=== PATIENT | female | born 1990 | race Asian ===

== ENCOUNTER 2017-07-03 23:14 | Emergency (ER) | payer SELFPAY ==
[2017-07-03] MEDS ORDERED: Acetaminophen TAB* 325 MG PO ONE (23:20)
[2017-07-04 04:39] VITALS: BP 107/74
--- NOTE | 2017-07-04 07:56 | RAD ---
HISTORY: Trauma, headache COMPARISONS: None TECHNIQUE: Multiple contiguous axial CT scans were obtained of the head without intravenous contrast. FINDINGS: HEMORRHAGE/INFARCT: There is no hemorrhage or acute infarct. MASSES/SHIFT: There is no mass or shift. EXTRA-AXIAL SPACES: There are no extra-axial fluid collections. SULCI AND VENTRICLES: The sulci and ventricles are normal in size and position for the patient's stated age. CEREBRUM: There are no focal parenchymal abnormalities. BRAINSTEM: There are no focal parenchymal abnormalities. CEREBELLUM: There are no focal parenchymal abnormalities. VESSELS: The vessels are grossly normal. PARANASAL SINUSES: The paranasal sinuses are clear. ORBITS: The orbits are unremarkable. BONES AND SOFT TISSUE: No bone or soft tissue abnormalities are noted. OTHER: None IMPRESSION: NO ACUTE INTRACRANIAL PATHOLOGY.
--- NOTE | 2017-07-04 07:58 | RAD ---
HISTORY: Trauma, neck pain COMPARISONS: None TECHNIQUE: Multiple contiguous axial CT scans were obtained of the cervical spine without intravenous contrast, with coronal and sagittal multiplanar reformations. FINDINGS: Evaluation is limited by streak artifact from metallic jewelry of the ears BRAIN: The visualized brain is unremarkable CENTRAL CANAL: Evaluation of the central canal is limited on CT technique, however there is no obvious canalicular mass or epidural hemorrhage. ALIGNMENT: The alignment is normal, without subluxation or dislocation. VERTEBRAL BODIES: The odontoid process is intact. The atlantoaxial intervals are symmetric. The vertebral bodies are normal in attenuation, without fracture. JOINTS: There is no subluxation or dislocation MUSCULATURE: Normal INTERVERTEBRAL DISCS: There is mild diffuse loss of intervertebral disc height. AXIAL IMAGES: On axial images, there is no osseous neural foraminal narrowing or central canal stenosis. SOFT TISSUES: The visualized soft tissues of the neck are unremarkable. The prevertebral fat stripe is preserved. OTHER: None. IMPRESSION: NO ACUTE OSSEOUS INJURY TO THE CERVICAL SPINE.
--- NOTE | 2017-07-04 07:59 | RAD ---
HISTORY: Fall, upper back pain COMPARISONS: None TECHNIQUE: Multiple contiguous axial CT scans were obtained of the thoracic spine without intravenous contrast, with coronal and sagittal multiplanar reformations. FINDINGS: SPINAL CANAL: Evaluation of the central canal is limited on CT technique; however, there is no obvious canalicular mass or epidural hemorrhage. ALIGNMENT: There is a mild scoliotic curvature of the spine VERTEBRAL BODIES: The vertebral bodies are preserved in height. The bones are normal in attenuation. JOINTS: No subluxation or dislocation MUSCULATURE: Normal INTERVERTEBRAL DISCS: There is mild diffuse loss of intervertebral disc height throughout the spine. AXIAL IMAGES: There is no osseous central canal stenosis or neuroforaminal narrowing. SOFT TISSUES: The visualized soft tissues of the chest and abdomen are unremarkable. OTHER: None IMPRESSION: NO ACUTE OSSEOUS INJURY TO THE THORACIC SPINE
--- NOTE | 2017-07-04 08:01 | RAD ---
HISTORY: Fall, left shoulder pain COMPARISONS: None VIEWS: 4, Frontal internal rotation, external rotation, outlet, and axillary views of the left shoulder FINDINGS: BONE DENSITY: Normal. BONES: There is no displaced fracture. JOINTS: There is no arthropathy. ALIGNMENT: There is no dislocation. SOFT TISSUES: Unremarkable. OTHER FINDINGS: None. IMPRESSION: NO ACUTE OSSEOUS INJURY. IF SYMPTOMS PERSIST, RECOMMEND REPEAT IMAGING.
--- NOTE | 2017-07-04 08:05 | RAD ---
HISTORY: Pain, fall, left-sided pain COMPARISONS: None VIEWS: 7, Frontal view of the chest with frontal and oblique views of the left hemithorax FINDINGS: There is no displaced rib fracture or pneumothorax. The visualized lungs are clear. IMPRESSION: NO DISPLACED RIB FRACTURE OR PNEUMOTHORAX.
--- NOTE | 2017-07-04 08:07 | RAD ---
HISTORY: Facial trauma, malocclusion COMPARISONS: None TECHNIQUE: Multiple contiguous axial CT scans were obtained of the face without intravenous contrast, with coronal and sagittal multiplanar reformations. FINDINGS: BONES: There is no displaced fracture or dislocation. The orbital rim is intact. The zygomatic arch is intact. The pterygoid plates are intact. ORBITS: The globes are round. The optic nerves are symmetric. The extraocular musculature is normal. There is no post septal or intraconal inflammatory change. There is no retrobulbar hematoma. PARANASAL SINUSES: There is a small mucous retention cyst of the left maxillary sinus BRAIN AND SOFT TISSUE: Unremarkable. OTHER: None. IMPRESSION: NO FACIAL FRACTURE
--- NOTE | 2017-07-04 10:37 | ED ---
Divina Moy Thomas, scribed for Lulú Sosa MD on 07/04/17 at 0311 . Progress - Progress Note Progress Note: The patient is a sign out from Dr. Washington at shift change pending XR shoulder. She says that she fell while walking down stairs and her head struck an object on the way down. At the time of re-evaluation 0220, she says that she is having trouble opening her jaw and that her teeth do not line up. She also complains of left rib pain. He male SO/spouse is with her. They are in agreement with further imaging. Pt still declines pain med more than acetaminophen. Pt was given results of XR shoulder as neg, as a preliminary reading by myself, Dr. Sosa. Exam: No TMJ tenderness, no swelling of hematoma of jaw. Pt able to open her mouth 2 fingers. Lower teeth are behind upper teeth but can be brought forward. Right ribs without ecchymosis, crepitus or bony tenderness. Max tenderness right lower lateral ribs. Abd soft,+BS, nontender. No splenomegaly or LUQ tenderness. Lungs good BS bilat, clear. In the ED course the patient was given acetaminophen. XR shoulder reveals no fracture and no dislocation. CXR with Ribs shows no definite fracture, no PTX, negative CXR. CT Maxillofacial is negative for acute pathology. ED physician has read this report and agrees. The patient will be discharged home with follow up by PCP. She is stable. Re-Evaluation - Re-Evaluation First Eval Re-Evaluation Time: 03:27 Change: Unchanged Comment: I re-evaluated the patient and informed pt and SO/spouse of the newest xray results showing no fractures. Pt is moving her jaw better and feels better. Course/Dx - Course Course Of Treatment: Condition: stable. Disposition: pt DC'd to home with male SO/spouse - Diagnoses Provider Diagnoses: Head injury, Concussion, Multiple contusions The documentation as recorded by the Divina byrne Thomas accurately reflects the service I personally performed and the decisions made by me, Lulú Sosa MD.
--- NOTE | 2017-07-09 13:11 | ED ---
Desi Moy Nilda, scribed for Chemo Washington MD on 07/04/17 at 0102 . Adult Trauma - HPI Summary HPI Summary: Patient is a 27 y.o. F BIBA presenting to [facility] s/p falling down stairs a few hours ago. Per EMS, patient was ambulatory after fall and walked to stretcher. Pain rated 9/10 in severity. Patient reports headache (diffuse burning), back pain (below neck), and shoulder pain. She denies LOC, dizziness, lightheadedness , and dyspnea. Patient denies drug abuse. - History of Current Complaint Chief Complaint: EDHeadInjury Stated Complaint: FALL/HEAD INJURY Time Seen by Provider: 07/03/17 23:21 Hx Obtained From: Patient, EMS Mechanism of Injury: Fall Ambulatory at the Scene: Yes Loss of Consciousness: no loss of consciousness Current Severity: Severe Pain Intensity: 9 Pain Scale Used: 0-10 Numeric Location: Head, Back, Other - shoulder Character: Burning Associated Signs & Symptoms: Positive: Other: - reports headache (diffuse burning), back pain (below neck), and shoulder pain. She denies LOC, dizziness, lightheadedness, and dyspnea. - Allergy/Home Medications Allergies/Adverse Reactions: Allergies Allergy/AdvReac Type Severity Reaction Status Date / Time Clarithromycin [From Biaxin] Allergy Unknown Verified 07/03/17 23:43 Reaction Details Codeine Allergy Unknown Verified 07/03/17 23:43 Reaction Details Morphine and Related Allergy Unknown Verified 07/03/17 23:43 Reaction Details Penicillins [PCN] Allergy Unknown Verified 07/03/17 23:43 Reaction Details PMH/Surg Hx/FS Hx/Imm Hx Opthamlomology History: Denies: Hx Legally Blind EENT History: Denies: Hx Deafness Infectious Disease History: No Infectious Disease History: Denies: Traveled Outside the [place] in Last 30 Days - Family History Known Family History: Negative: Hypertension, Diabetes Review of Systems Negative: Fever, Chills Negative: Erythema Negative: Sore Throat Negative: Chest Pain Negative: Shortness Of Breath, Cough Negative: Abdominal Pain, Vomiting, Nausea Negative: dysuria, hematuria Positive: Other - back pain (below neck) and shoulder pain. Negative: Myalgia , Edema Negative: Rash Neurological: Other - fall; negative LOC, dizziness, lightheadedness Positive: Headache All Other Systems Reviewed And Are Negative: Yes Physical Exam - Summary Physical Exam Summary: Constitutional: Well-developed, Well-nourished, Alert, Cooperative Skin: Warm, Dry HENT: Normocephalic; No Racoons eyes; No battles sign; No hemotympanum; No maxilla facial tenderness or instability; Dentition are smooth; No dental trauma ; No trismus; Small hematoma on occipital scalp. Eyes: EOM normal, PERRL Neck: Trachea is midline. No stridor; No JVD; No step off; No posterior cervical spine tenderness Cardio: Rhythm regular, rate normal Heart sounds normal; Intact distal pulses; The pedal pulses are 2+ and symmetric. Radial pulses are 2+ and symmetric. Pulmonary/Chest wall: Effort normal; Breath sounds normal; Equal chest rise; No flail segment; No rib tenderness; No sternal tenderness Abd: Soft, Appearance normal. No distension; No tenderness; No palpable pulsatile mass; No Cullens sign; No Correa-Turners sign Musculoskeletal: Tenderness over left mid clavicle (no pain with ROM); No joint swelling; No vertebral body tenderness; No paraspinal tenderness; No step off or deformity of the spine; Pelvis is stable to lateral compression and rock Neuro: Alert, Oriented x3, Strength 5/5 all extremities. : No blood at urethral meatus Psych: Mood and affect Normal Triage Information Reviewed: Yes Vital Signs On Initial Exam: Initial Vitals Temp Pulse Resp BP Pulse Ox 98.1 F 107 25 106/87 100 07/03/17 23:15 07/03/17 23:15 07/03/17 23:15 07/03/17 23:15 07/03/17 23:15 Vital Signs Reviewed: Yes Diagnostics - Vital Signs Vital Signs Temp Pulse Resp BP Pulse Ox 07/03/17 23:15 98.1 F 107 25 106/87 100 - Laboratory Lab Statement: Any lab studies that have been ordered have been reviewed, and results considered in the medical decision making process. - CT Head CT Interpretation Completed By: Radiologist - CT Head reveals no acute pathology per radiologist. ED Physician reviewed report and agrees. CT C-spine CT Interpretation Completed By: Radiologist CT T-spine CT Interpretation Completed By: Radiologist - CT T-spine reveals no fracture. ED Physician reviewed report and agrees. Re-Evaluation - Re-Evaluation First Eval Re-Evaluation Time: 03:27 Change: Unchanged Comment: I re-evaluated the patient and informed pt and SO/spouse of the newest xray results showing no fractures. Pt is moving her jaw better and feels better. Adult Trauma Course/Dx - Course Assessment/Plan: Patient is a 27 y.o. F BIBA presenting to [facility] s/p falling down stairs a few hours ago. Per EMS, patient was ambulatory after fall and walked to stretcher. Pain rated 9/10 in severity. Patient reports headache ( diffuse burning), back pain (below neck), and shoulder pain. She denies LOC, dizziness, lightheadedness, and dyspnea. Patient denies drug abuse. CT Head reveals no acute pathology per radiologist. ED Physician reviewed report and agrees. CT C- spine reveals no fracture. ED Physician reviewed report and agrees. CT T-spine reveals no fracture. ED Physician reviewed report and agrees. Patient was signed out to Dr. Sosa, pending disposition, awaiting shoulder XRAY. - Diagnoses Provider Diagnoses: Head injury, Concussion, Multiple contusions Discharge - Discharge Plan Condition: Stable Disposition: HOME Discharge Disposition Comment: Patient was signed out to Dr. Sosa, pending shoulder XRAY. Patient Education Materials: Concussion (ED), Contusion in Adults (ED), Safe Use of Acetaminophen (ED) Referrals: Jocy Mccall MD [Medical Doctor] - 2 Days (for concussion follow) Arabella Hu MD [Medical Doctor] - As Soon As Possible Additional Instructions: You were given acetaminophen (Tylenol) 650mg at 11:45pm on 07/03/17. You may safely take up to four grams of acetaminophen in 24 hrs. So maximum dose would be 1 gm four times a day for pain. Have follow up for concussion this week. Return to the ER if you have any new or worsening symptoms. Please be advised that the readings on your CT's and xrays are preliminary. We will contact you if there is any change in the readings. Your doctors tonight were Dr. Washington and Dr. Sosa. Dr. Sosa recommends that Dr. Hu should try to see you sooner in follow up , preferably this week to follow up on your multiple injuries and contusions tonight. The documentation as recorded by the scribe, Weeks,Darcy accurately reflects the service I personally performed and the decisions made by me, Chemo Washington MD.
== END 2017-07-04 04:47 | disposition home or self-care (01) ==
LOC: ED 23:14
DX: S06.0X0A Concussion without loss of consciousness, initial encounter (principal); S09.90XA Unspecified injury of head, initial encounter; T14.8 Other injury of unspecified body region; R51 Headache; W10.9XXA Fall (on) (from) unspecified stairs and steps, initial encounter; Y93.9 Activity, unspecified; Y92.9 Unspecified place or not applicable
CPT/HCPCS: 70450; 70486; 72125; 72128; 99283; A9270-GY

== ENCOUNTER 2018-06-07 14:34 | Emergency (ER) | payer OTHER ==
[2018-06-07] MEDS ORDERED: Ondansetron ODT TAB* 4 MG SL ONE (16:33)
[2018-06-07] MEDS ORDERED: NS 0.9% 1000 ML* 1,000 ML IV ONE (16:33)
[2018-06-07 16:57] LABS: ABS Basophils 0 10^3/ul (0-0.2); ABS Eosinophils 0 10^3/ul (0-0.6); ABS Monocytes 0.5 10^3/ul (0-0.8); ABS Neutrophils 1.8 10^3/ul (1.5-7.7); ABS Nucleated RBC 0 10^3/ul; Eosinophil % 0.7 % (0-6); Hematocrit 40 % (35-47); Hemoglobin 13.6 g/dl (12.0-16.0); Lymphocyte % 29.4 % (25-47); Mean Corpuscular HGB Conc 34 g/dl (31-36); Mean Corpuscular Hemoglobin 29 pg (27-31); Mean Corpuscular Volume 86 fL (80-97); Mean Platelet Volume 9.3 um3 (7.4-10.4); Nucleated Red Blood Cells % 0.1; Platelet Count 168 10^3/ul (150-450); Red Blood Count 4.66 10^6/ul (4.00-5.40); Red Cell Distribution Width 13 % (10.5-15); White Blood Count 3.3 10^3/ul (3.5-10.8)
[2018-06-07 17:20] LABS: EGFR Non-African American 142.6 (>60)
--- NOTE | 2018-06-07 17:23 | RAD ---
INDICATION: Chest pain and shortness of breath COMPARISON: None TECHNIQUE: PA and lateral views of the chest were obtained. FINDINGS: The heart and mediastinum are normal in size and contour. The lungs are grossly clear. There is no evidence of large pleural effusion. Visualized bones are normal for the patient's age. There is no radiographic evidence of free air beneath the diaphragm IMPRESSION: No radiographic evidence of acute cardiopulmonary disease.
[2018-06-07] MEDS ORDERED: Albuterol HFA INHALER* 8 gm MDI INH ONE (17:40)
[2018-06-07 18:02] VITALS: BP 114/74
--- NOTE | 2018-06-08 05:59 | ED ---
Influenza-Like Illness - HPI Summary HPI Summary: Patient is a 28-year-old female presenting to the ED with a variety of complaints. She endorses low-grade temperature over the past week, however this has ceased as of 2 days ago. She also endorses some sweats and chills. She endorses diffuse myalgias, however she states these are improving as well. Overall she states she feels better, however awoke this morning with some chest pressure which is diffuse as well as SOB. She states this is happened before when she was sick, and this was improved with albuterol inhaler given to her by her PCP. Temperature at home 100.5, she has been taking Tylenol with good relief. - History of Current Complaint Chief Complaint: EDChestPainROMI Time Seen by Provider: 06/07/18 16:23 Hx Obtained From: Patient Onset/Duration: Gradual Onset, Lasting Weeks Severity: Mild Associated Signs & Symptoms: Fever, T Max - 100.5, F/C, Myalgia - Risk Factors Influenza Risk Factors: Negative - Allergy/Home Medications Allergies/Adverse Reactions: Allergies Allergy/AdvReac Type Severity Reaction Status Date / Time MS Clarithromycin Allergy SEVERE Verified 06/07/18 17:19 [From Biaxin] VOMITING MS Codeine [Codeine] Allergy SEVERE Verified 06/07/18 17:19 VOMITING MS Morphine and Related Allergy SEVERE Verified 06/07/18 17:19 [Morphine and Related] VOMITING MS Penicillins [PCN] Allergy A CHILD Verified 06/07/18 17:19 DAIRY Allergy Diarrhea Uncoded 06/07/18 17:19 Home Medications: Home Medications NK [No Home Medications Reported] 06/07/18 [History Confirmed 06/07/18] PMH/Surg Hx/FS Hx/Imm Hx Previously Healthy: Yes Endocrine/Hematology History: Denies: Hx Diabetes Cardiovascular History: Denies: Hx Hypertension, Hx Pacemaker/ICD History: Denies: Hx Renal Disease Sensory History: Denies: Hx Legally Blind, Hx Deafness, Hx Hearing Aid Opthamlomology History: Denies: Hx Legally Blind Psychiatric History: Denies: Hx Panic Disorder - Surgical History Surgery Procedure, Year, and Place: TONSILS/ADENOIDS CHILD - Immunization History Immunizations Up to Date: Yes Infectious Disease History: No Infectious Disease History: Denies: Traveled Outside the [place] in Last 30 Days - Family History Known Family History: Negative: Hypertension, Diabetes - Social History Occupation: Employed Full-time Lives: With Family Alcohol Use: Rare Hx Substance Use: No Substance Use Type: Reports: None Hx Tobacco Use: No Smoking Status (MU): Never Smoked Tobacco Review of Systems Positive: Fever, Chills, Fatigue. Negative: Skin Diaphoresis Positive: Chest Pain. Negative: Palpitations Positive: Shortness Of Breath, Cough Genitourinary: Negative Positive: no symptoms reported, see HPI Positive: Myalgia Skin: Negative Neurological: Negative All Other Systems Reviewed And Are Negative: Yes Physical Exam Triage Information Reviewed: Yes Vital Signs On Initial Exam: Initial Vitals Temp Pulse Resp BP Pulse Ox 98.6 F 101 16 128/85 100 06/07/18 14:36 06/07/18 14:36 06/07/18 14:36 06/07/18 14:36 06/07/18 14:36 Vital Signs Reviewed: Yes Appearance: Positive: Well-Appearing, Well-Nourished Skin: Positive: Warm, Skin Color Reflects Adequate Perfusion Head/Face: Positive: Normal Head/Face Inspection Eyes: Positive: EOMI, JASVIR, Conjunctiva Clear Neck: Positive: Supple Respiratory/Lung Sounds: Positive: Clear to Auscultation, Breath Sounds Present Cardiovascular: Positive: RRR, Pulses are Symmetrical in both Upper and Lower Extremities Musculoskeletal: Positive: Normal, Strength/ROM Intact Neurological: Positive: Speech Normal Psychiatric: Positive: Normal, Affect/Mood Appropriate AVPU Assessment: Alert Diagnostics - Vital Signs Vital Signs Temp Pulse Resp BP Pulse Ox 06/07/18 18:11 99 F 69 16 114/74 100 06/07/18 17:35 77 17 114/74 99 06/07/18 17:17 82 18 117/84 93 06/07/18 16:48 17 113/77 06/07/18 14:36 98.6 F 101 16 128/85 100 - Laboratory Lab Results: Lab Results 06/07/18 06/07/18 06/07/18 Range/Units 16:52 16:52 16:52 WBC 3.3 L (3.5-10.8) 10^3/ul RBC 4.66 (4.00-5.40) 10^6/ul Hgb 13.6 (12.0-16.0) g/dl Hct 40 (35-47) % MCV 86 (80-97) fL MCH 29 (27-31) pg MCHC 34 (31-36) g/dl RDW 13 (10.5-15) % Plt Count 168 (150-450) 10^3/ul MPV 9.3 (7.4-10.4) um3 Neut % (Auto) 55.5 (38-83) % Lymph % (Auto) 29.4 (25-47) % [place] % (Auto) 14.1 H (0-7) % Eos % (Auto) 0.7 (0-6) % Baso % (Auto) 0.3 (0-2) % Absolute Neuts (auto) 1.8 (1.5-7.7) 10^3/ul Absolute Lymphs (auto) 1.0 (1.0-4.8) 10^3/ul Absolute Monos (auto) 0.5 (0-0.8) 10^3/ul Absolute Eos (auto) 0 (0-0.6) 10^3/ul Absolute Basos (auto) 0 (0-0.2) 10^3/ul Absolute Nucleated RBC 0 10^3/ul Nucleated RBC % 0.1 INR (Anticoag Therapy) 1.00 (0.77-1.02) D-Dimer, Quantitative < 200 (Less Than 230) ng/mL Sodium 139 (135-145) mmol/L Potassium 4.5 (3.5-5.0) mmol/L Chloride 107 (101-111) mmol/L Carbon Dioxide 25 (22-32) mmol/L Anion Gap 7 (2-11) mmol/L BUN 6 (6-24) mg/dL Creatinine 0.51 (0.51-0.95) mg/dL Est GFR ( Amer) 172.5 (>60) Est GFR (Non-Af Amer) 142.6 (>60) BUN/Creatinine Ratio 11.8 (8-20) Glucose 89 (70-100) mg/dL Lactic Acid (0.5-2.0) mmol/L Calcium 9.7 (8.6-10.3) mg/dL Total Bilirubin 0.30 (0.2-1.0) mg/dL AST 18 (13-39) U/L ALT 14 (7-52) U/L Alkaline Phosphatase 41 (34-104) U/L Troponin I 0.00 (<0.04) ng/mL Total Protein 7.1 (6.4-8.9) g/dL Albumin 4.8 (3.2-5.2) g/dL Globulin 2.3 (2-4) g/dL Albumin/Globulin Ratio 2.1 (1-3) Beta HCG, Quant < 0.60 mIU/mL Influenza A (Rapid) (Negative) Influenza B (Rapid) (Negative) 06/07/18 06/07/18 Range/Units 16:52 17:06 WBC (3.5-10.8) 10^3/ul RBC (4.00-5.40) 10^6/ul Hgb (12.0-16.0) g/dl Hct (35-47) % MCV (80-97) fL MCH (27-31) pg MCHC (31-36) g/dl RDW (10.5-15) % Plt Count (150-450) 10^3/ul MPV (7.4-10.4) um3 Neut % (Auto) (38-83) % Lymph % (Auto) (25-47) % [place] % (Auto) (0-7) % Eos % (Auto) (0-6) % Baso % (Auto) (0-2) % Absolute Neuts (auto) (1.5-7.7) 10^3/ul Absolute Lymphs (auto) (1.0-4.8) 10^3/ul Absolute Monos (auto) (0-0.8) 10^3/ul Absolute Eos (auto) (0-0.6) 10^3/ul Absolute Basos (auto) (0-0.2) 10^3/ul Absolute Nucleated RBC 10^3/ul Nucleated RBC % INR (Anticoag Therapy) (0.77-1.02) D-Dimer, Quantitative (Less Than 230) ng/mL Sodium (135-145) mmol/L Potassium (3.5-5.0) mmol/L Chloride (101-111) mmol/L Carbon Dioxide (22-32) mmol/L Anion Gap (2-11) mmol/L BUN (6-24) mg/dL Creatinine (0.51-0.95) mg/dL Est GFR ( Amer) (>60) Est GFR (Non-Af Amer) (>60) BUN/Creatinine Ratio (8-20) Glucose (70-100) mg/dL Lactic Acid 0.7 (0.5-2.0) mmol/L Calcium (8.6-10.3) mg/dL Total Bilirubin (0.2-1.0) mg/dL AST (13-39) U/L ALT (7-52) U/L Alkaline Phosphatase (34-104) U/L Troponin I (<0.04) ng/mL Total Protein (6.4-8.9) g/dL Albumin (3.2-5.2) g/dL Globulin (2-4) g/dL Albumin/Globulin Ratio (1-3) Beta HCG, Quant mIU/mL Influenza A (Rapid) Negative (Negative) Influenza B (Rapid) Negative (Negative) Result Diagrams: 06/07/18 16:52 06/07/18 16:52 Lab Statement: Any lab studies that have been ordered have been reviewed, and results considered in the medical decision making process. Flu Symptom Course/Dx - Course Course Of Treatment: During the course of treatment, the patient is evaluated for chest pain, shortness of breath and generalized illness. Chest pressure is described as a pressure diffusely throughout and does heavy. She endorses cough , however denies production. Endorses diffuse myalgias which are improving. Labs obtained including troponin which are WNL. Chest xray negative. Patient is given albuterol inhaler with good relief. Influenza swab obtained and is negative. She is given 1 L fluids with good effect. She is okay for discharge at this time. - Diagnoses Differential Diagnosis/HQI/PQRI: Positive: Influenza, Pneumonia, Upper Respiratory Infection Provider Diagnoses: Viral illness Discharge - Sign-Out/Discharge Documenting (check all that apply): Patient Departure - Discharge Plan Condition: Stable Disposition: HOME Referrals: Arabella Hu MD [Primary Care Provider] - Additional Instructions: Ibuprofen or tylenol for discomfort Albuterol inhaler up to every 4 hours - 1 puff Return if any symptoms change or worsen - Billing Disposition and Condition Condition: STABLE Disposition: Home
== END 2018-06-07 18:11 | disposition home or self-care (01) ==
LOC: ED 14:34
DX: B34.9 Viral infection, unspecified (principal); R07.89 Other chest pain; Z88.3 Allergy status to other anti-infective agents; Z88.0 Allergy status to penicillin; Z88.5 Allergy status to narcotic agent
CPT/HCPCS: 36415; 71046; 80053; 83605; 84484; 84702; 85025; 85379; 85610; 93005; 99282; A9270-GY

== ENCOUNTER 2018-10-16 00:19 | Emergency (ER) | payer OTHER ==
[2018-10-16] MEDS ORDERED: Ketorolac INJ* 30 MG/ML 1 ML VIAL IM ONE (00:45)
--- NOTE | 2018-10-16 01:47 | ED ---
Upper Extremity Pain - HPI Summary HPI Summary: Patient is a 28-year-old female presenting to the ED with left shoulder pain after throwing a harbor [employer] earlier this afternoon. She states she immediately felt discomfort all around the shoulder, to the posterior and anterior side and radiating down the tricep area. She denies any color or temperature changes. She states she is able to move about the joint, however with pain. She is concerned over a dislocation. She denies any numbness or tingling in the ipsilateral arm. She has never injured this shoulder in the past, however has had neck injuries and is currently in PT for right scalene muscle injuries. She is extremely concerned and anxious on arrival and is shaking. She is refusing any medications on arrival. - History of Current Complaint Chief Complaint: EDShoulderClavicleInj Stated Complaint: SHOULDER INJURY Time Seen by Provider: 10/16/18 00:37 Hx Obtained From: Patient Mechanism Of Injury: Twisted Onset/Duration: Started Hours Ago Timing: Constant Severity Initially: Moderate Severity Currently: Moderate Pain Location: Shoulder Character: Aching Aggravating Factor(s): Movement, Lifting, Flexion, Extension, Internal/External Rotation Alleviating Factor(s): Nothing Associated Signs & Symptoms: Positive: Negative Related History: Dominant Hand Right - Risk Factors Non-Orthopedic Risk Factor: Negative DVT Risk Factors: Negative Septic Arthritis Risk Factor: Negative Compartment Syndrome Risk Factors: Pain - Allergies/Home Medications Allergies/Adverse Reactions: Allergies Allergy/AdvReac Type Severity Reaction Status Date / Time MS Clarithromycin Allergy SEVERE Verified 10/16/18 00:23 [From Biaxin] VOMITING MS Codeine [Codeine] Allergy SEVERE Verified 10/16/18 00:23 VOMITING MS Morphine and Related Allergy SEVERE Verified 10/16/18 00:23 [Morphine and Related] VOMITING MS Penicillins [PCN] Allergy A CHILD Verified 10/16/18 00:23 DAIRY Allergy Diarrhea Uncoded 10/16/18 00:23 PMH/Surg Hx/FS Hx/Imm Hx Previously Healthy: Yes Endocrine/Hematology History: Denies: Hx Diabetes Cardiovascular History: Denies: Hx Hypertension, Hx Pacemaker/ICD History: Denies: Hx Renal Disease Sensory History: Denies: Hx Legally Blind, Hx Deafness, Hx Hearing Aid Opthamlomology History: Denies: Hx Legally Blind Psychiatric History: Denies: Hx Panic Disorder - Surgical History Surgery Procedure, Year, and Place: TONSILS/ADENOIDS CHILD - Immunization History Hx Pertussis Vaccination: No Immunizations Up to Date: Yes Infectious Disease History: No Infectious Disease History: Denies: Traveled Outside the [place] in Last 30 Days - Family History Known Family History: Negative: Hypertension, Diabetes - Social History Occupation: Unemployed Lives: With Family Alcohol Use: Rare Hx Substance Use: No Substance Use Type: Reports: None Hx Tobacco Use: No Smoking Status (MU): Never Smoked Tobacco Review of Systems Constitutional: Negative Negative: Fever, Chills, Fatigue, Skin Diaphoresis Negative: Palpitations, Chest Pain Negative: Shortness Of Breath, Cough Genitourinary: Negative Positive: no symptoms reported, see HPI Positive: Arthralgia, Myalgia Skin: Negative Neurological: Negative Positive: Anxious All Other Systems Reviewed And Are Negative: Yes Physical Exam Triage Information Reviewed: Yes Vital Signs On Initial Exam: Initial Vitals Temp Pulse Resp BP Pulse Ox 98.1 F 98 18 144/89 98 10/16/18 00:20 10/16/18 00:20 10/16/18 00:20 10/16/18 00:20 10/16/18 00:20 Vital Signs Reviewed: Yes Appearance: Positive: Well-Appearing, Well-Nourished Skin: Positive: Warm, Skin Color Reflects Adequate Perfusion Head/Face: Positive: Normal Head/Face Inspection Eyes: Positive: EOMI, JASVIR, Conjunctiva Clear Neck: Positive: Supple Respiratory/Lung Sounds: Positive: Clear to Auscultation, Breath Sounds Present Cardiovascular: Positive: RRR, Pulses are Symmetrical in both Upper and Lower Extremities Musculoskeletal: Positive: Pain @ - posterior and anterior shoulder throughout supraspinatus and trapezius radiating down to the elbow - worse with movement and better with rest Neurological: Positive: Speech Normal Psychiatric: Positive: Normal, Affect/Mood Appropriate Diagnostics - Vital Signs Vital Signs Temp Pulse Resp BP Pulse Ox 10/16/18 00:20 98.1 F 98 18 144/89 98 - Laboratory Lab Statement: Any lab studies that have been ordered have been reviewed, and results considered in the medical decision making process. Course/Dx - Course Course Of Treatment: During the course treatment, the patient is evaluated for left shoulder injury. Shoulder tests all WNL: Neer test, empty can test, Yergason's test. No sulcus sign evident. X-ray obtained and read by Dr. Sosa is negative for any fracture or dislocation. While patient continues to be in pain, she continues to refuse any pain control. She is willing to try a Toradol IM. She states she has medical marijuana at home and will continue to use that for discomfort. She is placed in a shoulder immobilizer and will follow up with ortho in 2-3 days. NV intact. - Diagnoses Differential Diagnosis/HQI/PQRI: Positive: Strain, Sprain Provider Diagnoses: Shoulder strain Discharge - Sign-Out/Discharge Documenting (check all that apply): Patient Departure - Discharge Plan Condition: Stable Disposition: HOME Patient Education Materials: Shoulder Sprain (ED) Referrals: Arabella Hu MD [Primary Care Provider] - Brandie Zhu MD [Medical Doctor] - Additional Instructions: Ibuprofen 600mg every 6 hours x 3 days Take this with small amount of food Try to relax as much as you can - this will relax the muscles Moist heat to the area as much as possible starting tomorrow and lie on top of moist heat pack while sleeping Tonight and in the morning - use ICE (except for just before bed) keep the arm in the splint as long as you are having symptoms Gentle stretches if they are not TOO painful Do not stiffen up or try to NOT use your arm or neck muscles - this will freeze up your shoulder more Call orthopedic clinic on Wednesday for an appt You may always return to the ED - Billing Disposition and Condition Condition: STABLE Disposition: Home
[2018-10-16 02:22] VITALS: BP 137/79
== END 2018-10-16 02:00 | disposition home or self-care (01) ==
LOC: ED 00:19
DX: S43.402A Unspecified sprain of left shoulder joint, initial encounter (principal); X50.9XXA Other and unspecified overexertion or strenuous movements or postures, initial encounter; Y92.9 Unspecified place or not applicable; Z88.0 Allergy status to penicillin; Z88.5 Allergy status to narcotic agent
CPT/HCPCS: 96372; 99282; J1885

== ENCOUNTER 2018-10-16 15:47 | Emergency (ER) | payer OTHER ==
--- NOTE | 2018-10-16 16:20 | ED ---
Upper Extremity Pain - HPI Summary HPI Summary: A 28 y/o female accompanied by a friend presents to the ED c/o left shoulder pain reaching 7/10 in severity. As per triage, "pt states feels like arm is pinched off, colder than the other and hurts more". According to the patient, she was here last night because of her shoulder pain from throwing a sheet. She stated that she is not sure what it is, but she was referred to an wardrobe specialist at [facility] ([place]. Zhu). She stated that since then, her left armpit has been in pain along with the shoulder. Additionally, her left arm has been changing color from red to purple and she experiences some numbness/tingling. She noted that the pain is in a different location from yesterday. She noted that what she is feeling is similar to the heaviness feeling during drawing blood. - History of Current Complaint Chief Complaint: EDShoulderClavicleInj Stated Complaint: SHOULDER INURY Time Seen by Provider: 10/16/18 16:00 Hx Obtained From: Patient Mechanism Of Injury: Other - THROWING BLANKETS Onset/Duration: Started Days Ago, Still Present Timing: Constant Severity Initially: Moderate - 7/10 Severity Currently: Moderate - 7/10 Pain Location: Shoulder - LEFT Character: Unable to Describe Aggravating Factor(s): Movement Alleviating Factor(s): Nothing Associated Signs & Symptoms: Positive: Numbness/Tingling - IN LEFT ARM - Allergies/Home Medications Allergies/Adverse Reactions: Allergies Allergy/AdvReac Type Severity Reaction Status Date / Time gluten Allergy Stomach Verified 10/16/18 15:53 Cramps lactase [From Dairy Aid] Allergy Muscle Ache Verified 10/16/18 15:53 morphine Allergy Vomiting Verified 10/16/18 15:53 Penicillins Allergy Vomiting Verified 10/16/18 15:53 biaxin Allergy Vomiting Uncoded 10/16/18 15:53 DAIRY Allergy Diarrhea Uncoded 10/16/18 15:53 PMH/Surg Hx/FS Hx/Imm Hx Endocrine/Hematology History: Denies: Hx Diabetes Cardiovascular History: Denies: Hx Hypertension, Hx Pacemaker/ICD History: Denies: Hx Renal Disease Sensory History: Denies: Hx Legally Blind, Hx Deafness, Hx Hearing Aid Opthamlomology History: Denies: Hx Legally Blind Psychiatric History: Denies: Hx Panic Disorder - Surgical History Surgery Procedure, Year, and Place: TONSILS/ADENOIDS CHILD Infectious Disease History: No Infectious Disease History: Denies: Traveled Outside the [place] in Last 30 Days - Family History Known Family History: Negative: Hypertension, Diabetes - Social History Alcohol Use: Rare Hx Substance Use: No Substance Use Type: Reports: None Hx Tobacco Use: No Smoking Status (MU): Never Smoked Tobacco Review of Systems Negative: Fever Positive: Other - POSITIVE: LEFT SHOULDER PAIN/ARMPIT PAIN Positive: Numbness - TINGLING All Other Systems Reviewed And Are Negative: Yes Physical Exam - Summary Physical Exam Summary: Appearance: The patient is well-nourished in no acute distress and in no acute pain. Skin: The skin is warm and dry and skin color reflects adequate perfusion. HEENT: The head is normocephalic and atraumatic. The pupils are equal and reactive. The conjunctivae are clear and without drainage. Nares are patent and without drainage. Mouth reveals moist mucous membranes and the throat is without erythema and exudate. The external ears are intact. The ear canals are patent and without drainage. The tympanic membranes are intact. Neck: The neck is supple with full range of motion and non-tender. There are no carotid bruits. There is no neck vein distension. Respiratory: Chest is non-tender. Lungs are clear to auscultation and breath sounds are symmetrical and equal. Cardiovascular: Heart is regular rate and rhythm. There is no murmur or rub auscultated. There is no peripheral edema and pulses are symmetrical and equal. Abdomen: The abdomen is soft and non-tender. There are normal bowel sounds heard in all four quadrants and there is no organomegaly palpated. Musculoskeletal: There is no back tenderness noted. Extremities are non-tender with full range of motion. There is good capillary refill. There is no peripheral edema or calf tenderness elicited. Left arm has good radial and ulnar pulse. NV and motor intact. Neurological: Patient is alert and oriented to person, place and time. The patient has symmetrical motor strength in all four extremities. Cranial nerves are grossly intact. Deep tendon reflexes are symmetrical and equal in all four extremities. Psychiatric: The patient has an appropriate affect and does not exhibit any depression. Patient is anxious. Triage Information Reviewed: Yes Vital Signs On Initial Exam: Initial Vitals Temp Pulse Resp BP Pulse Ox 98.9 F 88 16 147/79 97 10/16/18 15:49 10/16/18 15:49 10/16/18 15:49 10/16/18 15:49 10/16/18 15:49 Vital Signs Reviewed: Yes Diagnostics - Vital Signs Vital Signs Temp Pulse Resp BP Pulse Ox 10/16/18 15:49 98.9 F 88 16 147/79 97 - Laboratory Lab Statement: Any lab studies that have been ordered have been reviewed, and results considered in the medical decision making process. - CT UPPER EXTREMITY CT CT Interpretation Completed By: Radiologist Summary of CT Findings: HILL-SACHS FRACTURE. ED PHYSICIAN REVIEWED THIS RADIOLOGY REPORT. Course/Dx - Course Course Of Treatment: Ms. Cardenas return to the emergency department with a concern for her left shoulder injury. She was throwing some sheets yesterday and felt a great deal of pain and a pop in her left shoulder. She presented to the emergency department and was violated with an exam and an x-ray and placed in a shoulder immobilizer. Today she is complaining that she has paresthesias that are intermittent. These involve both temperature and tingling sensations. On exam she was completely intact neuro vascular and motor distally and had a lot of tenderness in her axilla. CT scan showed a Hill-Sachs fracture suggesting that she partially dislocated yesterday and spontaneously reduced. She has good sensation over the deltoid. She likely has inflammation in her axilla that is causing her symptomatology and I recommended we treat with continued immobilization and anti-inflammatories. - Diagnoses Provider Diagnoses: Hill-Sachs fracture, Shoulder dislocation Discharge - Sign-Out/Discharge Documenting (check all that apply): Patient Departure - DISCHARGE - Discharge Plan Condition: Stable Disposition: HOME Patient Education Materials: Shoulder Dislocation (ED) Referrals: Arabella Hu MD [Primary Care Provider] - 3 Days Gris Gao MD [Medical Doctor] - 3 Days Additional Instructions: FOLLOW UP WITH ORTHOPEDICS IN 2-3 DAYS. TAKE IBUPROFEN NEEDED FOR PAIN. KEEP YOUR ARM IN THE SHOULDER IMMOBILIZER UNTIL CLEARED BY ORTHOPEDICS. RETURN TO ED FOR ANY NEW OR WORSENING SYMPTOMS. - Billing Disposition and Condition Condition: STABLE Disposition: Home - Attestation Statements Document Initiated by Scribe: Yes Documenting Scribe: Hernando Ferreira Provider For Whom Scribe is Documenting (Include Credential): Ricardo Emanuel MD Scribe Attestation: IHernando, scribed for Ricardo Emanuel MD on 10/16/18 at 2117. Scribe Documentation Reviewed: Yes Provider Attestation: The documentation as recorded by the scribeHernando accurately reflects the service I personally performed and the decisions made by me, Ricardo Emanuel MD Status of Scribe Document: Viewed
[2018-10-16] MEDS ORDERED: Ketorolac INJ* 30 MG/ML 1 ML VIAL IM ONE (18:06)
[2018-10-16 18:35] VITALS: BP 119/69
== END 2018-10-16 18:34 | disposition home or self-care (01) ==
LOC: ED 15:47
DX: S42.292A Other displaced fracture of upper end of left humerus, initial encounter for closed fracture (principal); M25.512 Pain in left shoulder; Z88.0 Allergy status to penicillin; X58.XXXA Exposure to other specified factors, initial encounter; Y92.9 Unspecified place or not applicable
CPT/HCPCS: 96372; 99282; J1885

== ENCOUNTER 2018-10-17 23:08 | Emergency (ER) | payer OTHER ==
[2018-10-18] MEDS ORDERED: Ketorolac INJ* 30 MG/ML 1 ML VIAL IM ONE (01:35)
--- NOTE | 2018-10-18 01:36 | ED ---
Upper Extremity Pain - HPI Summary HPI Summary: Patient complains of pain to right thumb after mechanical fall tonight. Denies any other pain, injury, symptoms. - History of Current Complaint Chief Complaint: EDExtremityUpper Stated Complaint: THUMB INJURY Time Seen by Provider: 10/18/18 01:18 Hx Obtained From: Patient Mechanism Of Injury: Fall From A Standing Position Onset/Duration: Started Hours Ago Timing: Constant Severity Initially: Moderate Severity Currently: Moderate Pain Location: Finger Character: Aching, Throbbing Aggravating Factor(s): Movement Associated Signs & Symptoms: Positive: Swelling - Allergies/Home Medications Allergies/Adverse Reactions: Allergies Allergy/AdvReac Type Severity Reaction Status Date / Time casein Allergy Abdominal Verified 10/17/18 23:30 Pain gluten Allergy Stomach Verified 10/16/18 15:53 Cramps lactase [From Dairy Aid] Allergy Muscle Ache Verified 10/16/18 15:53 morphine Allergy Vomiting Verified 10/16/18 15:53 Penicillins Allergy Vomiting Verified 10/16/18 15:53 biaxin Allergy Vomiting Uncoded 10/16/18 15:53 DAIRY Allergy Diarrhea Uncoded 10/16/18 15:53 PMH/Surg Hx/FS Hx/Imm Hx Endocrine/Hematology History: Denies: Hx Diabetes Cardiovascular History: Denies: Hx Cardiac Arrest, Hx Hypertension, Hx Pacemaker/ICD History: Denies: Hx Dialysis, Hx Renal Disease Sensory History: Denies: Hx Eye Prosthesis, Hx Legally Blind, Hx Deafness, Hx Hearing Aid Opthamlomology History: Denies: Hx Legally Blind EENT History: Denies: Hx Deafness Neurological History: Denies: Hx Developmental Delay Psychiatric History: Denies: Hx Panic Disorder - Surgical History Surgery Procedure, Year, and Place: TONSILS/ADENOIDS CHILD Infectious Disease History: No Infectious Disease History: Denies: Traveled Outside the [place] in Last 30 Days - Family History Known Family History: Negative: Hypertension, Diabetes - Social History Alcohol Use: Rare Hx Substance Use: No Substance Use Type: Reports: None Hx Tobacco Use: No Smoking Status (MU): Never Smoked Tobacco Review of Systems Constitutional: Negative Eyes: Negative ENT: Negative Cardiovascular: Negative Respiratory: Negative Gastrointestinal: Negative Genitourinary: Negative Musculoskeletal: Other Skin: Negative Neurological: Negative Psychological: Normal All Other Systems Reviewed And Are Negative: Yes Physical Exam - Summary Physical Exam Summary: Mild swelling to MCP joint of right thumb. Flexion and extension intact at each individual joint. Cap refill immediate. PMS intact distally. No snuffbox tenderness. No pain with flexion or extension of right wrist or other fingers of right hand. Triage Information Reviewed: Yes Vital Signs On Initial Exam: Initial Vitals Temp Pulse Resp BP Pulse Ox 97.8 F 100 18 126/92 100 10/17/18 23:31 10/17/18 23:31 10/17/18 23:31 10/17/18 23:31 10/17/18 23:31 Vital Signs Reviewed: Yes Appearance: Positive: Well-Appearing Skin: Positive: Warm Head/Face: Positive: Normal Head/Face Inspection Eyes: Positive: Normal Neck: Positive: Supple Respiratory/Lung Sounds: Positive: Clear to Auscultation Cardiovascular: Positive: Normal Abdomen Description: Positive: Nontender Musculoskeletal: Positive: Normal Neurological: Positive: Normal Psychiatric: Positive: Normal AVPU Assessment: Alert - Peridot Coma Scale Best Eye Response: 4 - Spontaneous Best Motor Response: 6 - Obeys Commands Best Verbal Response: 5 - Oriented Coma Scale Total: 15 Procedures - Splinting 1 Location: right wirst Pre-Made Type: velcro Splint: thumb spica Pre-Proc Neuro Vasc Exam: normal Post-Proc Neuro Vasc Exam: normal Diagnostics - Vital Signs Vital Signs Temp Pulse Resp BP Pulse Ox 10/17/18 23:31 97.8 F 100 18 126/92 100 - Laboratory Lab Statement: Any lab studies that have been ordered have been reviewed, and results considered in the medical decision making process. Course/Dx - Course Course Of Treatment: Patient complains of pain to right thumb after mechanical fall tonight. Denies any other pain, injury, symptoms. Physical exam:Mild swelling to MCP joint of right thumb. Flexion and extension intact at each individual joint. Cap refill immediate. PMS intact distally. No snuffbox tenderness. No pain with flexion or extension of right wrist or other fingers of right hand. Vital signs within normal limits. X-ray negative. Likely diagnosis thumb sprain. Patient placed in thumb spica splint by provider. Patient has appointment with orthopedics tomorrow for shoulder evaluation. Advised patient to follow-up with orthopedics tomorrow. Ice and ibuprofen for pain and swelling. - Diagnoses Provider Diagnoses: Sprain of right thumb Discharge - Sign-Out/Discharge Documenting (check all that apply): Patient Departure - Discharge Plan Condition: Stable Disposition: HOME Patient Education Materials: Emmanueler's Thumb (ED) Referrals: Arabella Hu MD [Primary Care Provider] - Additional Instructions: Ice, ibuprofen for pain and swelling. Symptoms should improve over the next few days. Follow-up with orthopedics appointment tomorrow for further evaluation. - Billing Disposition and Condition Condition: STABLE Disposition: Home
[2018-10-18 01:53] VITALS: BP 0/0
--- NOTE | 2018-10-18 08:39 | ED ---
Progress - Progress Note Progress Note: Final radiology read indicates Non-displaced fx of the distal tuft. Pt dx'd w/ skier's thumb and placed in thumb spica, advised to f/u w/ ortho today. Attempted to call to update final read - LMTC. No change in treatment. Course/Dx - Course Course Of Treatment: Patient complains of pain to right thumb after mechanical fall tonight. Denies any other pain, injury, symptoms. Physical exam:Mild swelling to MCP joint of right thumb. Flexion and extension intact at each individual joint. Cap refill immediate. PMS intact distally. No snuffbox tenderness. No pain with flexion or extension of right wrist or other fingers of right hand. Vital signs within normal limits. X-ray negative. Likely diagnosis thumb sprain. Patient placed in thumb spica splint by provider. Patient has appointment with orthopedics tomorrow for shoulder evaluation. Advised patient to follow-up with orthopedics tomorrow. Ice and ibuprofen for pain and swelling. - Diagnoses Provider Diagnoses: Sprain of right thumb Discharge - Sign-Out/Discharge Documenting (check all that apply): Post-Discharge Follow Up - Discharge Plan Condition: Stable Disposition: HOME Patient Education Materials: Skier's Thumb (ED) Referrals: Arabella Hu MD [Primary Care Provider] - Additional Instructions: Ice, ibuprofen for pain and swelling. Symptoms should improve over the next few days. Follow-up with orthopedics appointment tomorrow for further evaluation. - Billing Disposition and Condition Condition: STABLE Disposition: Home
== END 2018-10-18 01:52 | disposition home or self-care (01) ==
LOC: ED 23:08
DX: S63.601A Unspecified sprain of right thumb, initial encounter (principal); W19.XXXA Unspecified fall, initial encounter; Y92.9 Unspecified place or not applicable; Z88.1 Allergy status to other antibiotic agents; Z88.5 Allergy status to narcotic agent; Z88.0 Allergy status to penicillin
CPT/HCPCS: 99282; J1885

== ENCOUNTER 2018-10-25 17:07 | Emergency (ER) | payer OTHER ==
[2018-10-25 17:13] VITALS: BP 125/77
--- OUTSIDE RECORDS SUMMARY | 2018-10-25 17:17 | XMS REPORT | Continuity of Care Document ---
:1990 External Reference #:[id number] Author Name Nadya Toledo Care Team Providers Name Role Phone Arabella Valentine MD Primary Care Physician Unavailable Payers Type Date Identification Numbers Payment Provider Subscriber Policy Number: [id number] [employer] Ivan Alejo PayID: [id number] [id number] [place] [address] Advance Directives Description No Information Available Problems Description No Information Family History Date Family Member(s) Problem(s) Comments General Heart Disease General Stroke General Autoimmune Social History Type Date Description Comments Sex Unknown Lives With Spouse Occupation Unemployed ETOH Use Denies alcohol use Tobacco Use Start: Unknown Patient has never smoked Smoking Status Reviewed: 10/18/18 Patient has never smoked Exercise Type/Frequency Does not exercise Allergies, Adverse Reactions, Alerts Date Description Reaction Status Severity Comments 10/18/2018 Biaxin Active 10/18/2018 Penicillin Active 10/18/2018 Opiods Active severe reaction Medications Medication Date Status Form Strength Qnty SIG Indications Ordering Provider Magnesium Active Tablets 400mg 1 by Unknown 00 mouth every day Cortisol Active Tablets Unknown [employer] P[employer]cher[employer] 00 CBD Oil Active Unknown 00 Medications Administered in Office Medication Date Status Form Strength Qnty SIG Indications Ordering Provider Toradol Administered Injection Dru F Injection 15MG 019 MD Haylie Immunizations Description No Information Available Vital Signs Date Vital Result Comment 10/18/2018 3:07pm Height 64 inches 5'4" Weight 135.00 lb Respiratory Rate 18 /min Body Temperature 98.7 F Pain Level 7 BMI (Body Mass Index) 23.2 kg/m2 Results Description No Information Available Procedures Description No Information Available Encounters Description No Information Available Plan of Treatment Future Appointment(s):11/15/2018 3:00 pm - Dru Stallings MD at [facility]..01/04/2019 11:15 am - Luke Guevara M.D. at [facility]10/18/2018 - Dru Stallings, [id number] Anterior dislocation of left humerus, initial encounterNew Therapy:Physical TherapyFollow up:Follow up: 4 [id number] Sprain of other part of right wrist and hand, initial encoun
--- NOTE | 2018-10-25 17:39 | ED ---
Upper Extremity Pain - HPI Summary HPI Summary: 28-year-old female presents with left shoulder injury today. She states that she has history of shoulder dislocation a week ago. She states that she started to do exercises in her bathtub as advised by ortho and she developed pain in her left shoulder. She states she felt a crunch and felt pain in her entire left shoulder. She states she took some Tylenol for the pain. States she has limited overhead motion. She has some tingling under her armpit. No other injury. She is right handed. She has not been using any brace on the area as advised by ortho. She called her ortho office and they told her to come here. - History of Current Complaint Chief Complaint: EDExtremityUpper Stated Complaint: LEFT SHOULDER INJURY Time Seen by Provider: 10/25/18 17:16 - Allergies/Home Medications Allergies/Adverse Reactions: Allergies Allergy/AdvReac Type Severity Reaction Status Date / Time casein Allergy Abdominal Verified 10/25/18 17:13 Pain gluten Allergy Stomach Verified 10/25/18 17:13 Cramps lactase [From Dairy Aid] Allergy Muscle Ache Verified 10/25/18 17:13 morphine Allergy Vomiting Verified 10/25/18 17:13 Penicillins Allergy Vomiting Verified 10/25/18 17:13 biaxin Allergy Vomiting Uncoded 10/25/18 17:13 DAIRY Allergy Diarrhea Uncoded 10/25/18 17:13 PMH/Surg Hx/FS Hx/Imm Hx Endocrine/Hematology History: Denies: Hx Diabetes Cardiovascular History: Denies: Hx Cardiac Arrest, Hx Hypertension, Hx Pacemaker/ICD History: Denies: Hx Dialysis, Hx Renal Disease Sensory History: Denies: Hx Eye Prosthesis, Hx Legally Blind, Hx Deafness, Hx Hearing Aid Opthamlomology History: Denies: Hx Eye Prosthesis, Hx Legally Blind Neurological History: Denies: Hx Developmental Delay Psychiatric History: Denies: Hx Panic Disorder - Surgical History Surgery Procedure, Year, and Place: TONSILS/ADENOIDS CHILD Infectious Disease History: No Infectious Disease History: Denies: Traveled Outside the [place] in Last 30 Days - Family History Known Family History: Negative: Hypertension, Diabetes - Social History Alcohol Use: Rare Hx Substance Use: No Substance Use Type: Reports: None Hx Tobacco Use: No Smoking Status (MU): Never Smoked Tobacco Review of Systems Negative: Fever Negative: Chest Pain Negative: Shortness Of Breath Positive: Myalgia - left shoulder pain All Other Systems Reviewed And Are Negative: Yes Physical Exam Triage Information Reviewed: Yes Vital Signs On Initial Exam: Initial Vitals Temp Pulse Resp BP Pulse Ox 97.1 F 76 22 125/77 100 10/25/18 17:09 10/25/18 17:09 10/25/18 17:09 10/25/18 17:09 10/25/18 17:09 Vital Signs Reviewed: Yes Appearance: Positive: Well-Appearing Skin: Positive: Warm, Dry Head/Face: Positive: Normal Head/Face Inspection Eyes: Positive: Normal, Conjunctiva Clear ENT: Positive: Pharynx normal Respiratory/Lung Sounds: Positive: Clear to Auscultation, Breath Sounds Present Cardiovascular: Positive: Normal, RRR Abdomen Description: Positive: Nontender, Soft Bowel Sounds: Positive: Present Musculoskeletal: Positive: Limited @ - left shoulder, Other - tenderness left shoulder, no step off, good physical sciences professor strength, capillary refill<2 secs Neurological: Positive: Normal Psychiatric: Positive: Normal Diagnostics - Vital Signs Vital Signs Temp Pulse Resp BP Pulse Ox 10/25/18 17:09 97.1 F 76 22 125/77 100 - Laboratory Lab Statement: Any lab studies that have been ordered have been reviewed, and results considered in the medical decision making process. - Radiology shoulder Radiology Interpretation Completed By: Radiologist Summary of Radiographic Findings: IMPRESSION: Normal radiograph of the left shoulder. Course/Dx - Course Course Of Treatment: 28 year old female presents with left shoulder pain today. She states she was starting to do her PT excerise in the bath when she felt a crunch and developed pain and limited ROM. she had some numbness in her armpit. On exam tenderness over left shoulder. Neurovascularly intact. xray shows no fracture or dislocation. told to follow back up with orthopedic. Told to stop PT exercises at this time until cleared by ortho. Patient understands agrees to plan. - Diagnoses Differential Diagnosis/HQI/PQRI: Positive: Fracture (Closed), Other - dislocation, rotator cuff injury Provider Diagnoses: Left shoulder pain Discharge - Sign-Out/Discharge Documenting (check all that apply): Patient Departure - Discharge Plan Condition: Good Disposition: HOME Patient Education Materials: Shoulder Pain (ED) Referrals: Dru Stallings MD [Medical Doctor] - Arabella Hu MD [Primary Care Provider] - Additional Instructions: Follow up with ortho ice take tyenlol or ibuprofen every 6 hours as needed for pain Return to ED if develop any new or worsening symptoms - Billing Disposition and Condition Condition: GOOD Disposition: Home
[2018-10-25] MEDS ORDERED: Ketorolac INJ* 30 MG/ML 1 ML VIAL IM ONE (17:50)
== END 2018-10-25 18:28 | disposition home or self-care (01) ==
LOC: ED 17:07
DX: M25.512 Pain in left shoulder (principal); Z88.0 Allergy status to penicillin
CPT/HCPCS: 96372; 99281; J1885

== ENCOUNTER → 2019-02-25 12:55 | Emergency (ER) | payer OTHER ==
[2019-02-25 13:06] VITALS: BP 142/90
--- OUTSIDE RECORDS SUMMARY | 2019-02-25 13:28 | XMS REPORT | Continuity of Care Document ---
:1990 External Reference #:[id number] Author Name Nadya Toledo Care Team Providers Name Role Phone Arabella Valentine MD Primary Care Physician Unavailable Payers Date Identification Numbers Payment Provider Subscriber Policy Number: [id number] [employer] Ivan Alejo PayID: [id number] [address] [place] [address] Advance Directives Description No Information Available Problems Active Problems Provider Date Strain of rotator cuff capsule Dru Stallings MD Onset: 01/03/2019 Family History Date Family Member(s) Observation Comments General Heart Disease General Stroke General Autoimmune Social History Type Date Description Comments Sex Unknown Lives With Spouse Occupation Unemployed ETOH Use Denies alcohol use Tobacco Use Start: Unknown Patient has never smoked Smoking Status Reviewed: 02/14/19 Patient has never smoked Exercise Type/Frequency Does not exercise Allergies, Adverse Reactions, Alerts Active Allergies Reaction Severity Comments Date Biaxin 10/18/2018 Penicillin 10/18/2018 Opiods severe reaction 10/18/2018 Dairy Ease Moderate 01/04/2019 Gluten Moderate 01/04/2019 Diethylcarbamazine 01/04/2019 Lunesta Moderate 01/04/2019 Morphine Severe 01/04/2019 Medications Active Medications SIG Qnty Indications Ordering Provider Date Riboflavin 1 by mouth 90tabs G43.009 Luke Guevara, 01/04/2019 400mg Tablets every day M.D. Coenzyme Q-10 1 by mouth 180caps G43.009 Luke Guevara, 01/04/2019 100mg twice a day M.D. Capsules Magnesium 2 by mouth Unknown 400mg Tablets every day Cortisol [employer]ed [employer] Panels Developer once a day Unknown Tablets CBD Oil Unknown Progesterone use daily Unknown 40% Cream Multivitamin once a day Unknown Turmeric once a day Unknown [place] 3 once a day Unknown Medications Administered in Office Medication SIG Qnty Indications Ordering Provider Date Toradol Injection 15MG Dru Stallings MD 10/18/2018 Injection Immunizations Description No Information Available Vital Signs Date Vital Result Comment 02/14/2019 3:24pm Height 64 inches 5'4" Weight 135.00 lb Heart Rate 80 /min BP Systolic Sitting 122 mmHg BP Diastolic Sitting 78 mmHg Pain Level 0 BMI (Body Mass Index) 23.2 kg/m2 01/04/2019 11:33am Height 64 inches 5'4" Weight 135.00 lb Heart Rate 74 /min BP Systolic Sitting 108 mmHg BP Diastolic Sitting 68 mmHg BMI (Body Mass Index) 23.2 kg/m2 01/03/2019 11:00am Height 64 inches 5'4" Weight 135.00 lb Heart Rate 70 /min BP Systolic 110 mmHg BP Diastolic 72 mmHg Respiratory Rate 12 /min Pain Level 1 BMI (Body Mass Index) 23.2 kg/m2 11/29/2018 2:27pm Height 64 inches 5'4" Weight 137.00 lb Heart Rate 87 /min BP Systolic 116 mmHg BP Diastolic 56 mmHg Body Temperature 98.3 F Pain Level 4 BMI (Body Mass Index) 23.5 kg/m2 10/27/2018 1:42pm Height 64 inches 5'4" Weight 135.00 lb Heart Rate 97 /min BP Systolic 104 mmHg BP Diastolic 68 mmHg Respiratory Rate 14 /min Pain Level 6 BMI (Body Mass Index) 23.2 kg/m2 10/18/2018 3:07pm Height 64 inches 5'4" Weight 135.00 lb Respiratory Rate 18 /min Body Temperature 98.7 F Pain Level 7 BMI (Body Mass Index) 23.2 kg/m2 Results Description No Information Available Procedures Date Code Description Status 11/08/2018 [id number] Bone Mineral Density Test Completed Encounters Type Date Location Provider Dx Diagnosis Office Visit 01/04/2019 [place] Lizz Adamson G43.009 Migraine w/o aura, 11:15a [facility] G[facility] M.D. not intractable, w/o status migrainosus G44.309 Post-traumatic headache, unspecified, not intractable Office Visit 01/03/2019 [facility] Dru Vazquez S46.011A Strain of 10:15a [facility] musc/tend the [facility] rotator cuff of right shoulder, init Office Visit 11/29/2018 [place] Vaz[facility] S43.015D Anterior 2:30p [facility] dislocation of [facility] left humerus, subsequent encounter S73.102D Unspecified sprain of left hip, subsequent encounter Office Visit 10/27/2018 [facility] Dru Vazquez S43.015D Anterior 1:30p [facility] dislocation of [facility] left humerus, subsequent encounter S73.102A Unspecified sprain of left hip, initial encounter Office Visit 10/18/2018 [facility] Dru Kendall3.015A Anterior 2:30p [facility] dislocation of [facility] left humerus, initial encounter S63.8x1A Sprain of other part of right wrist and hand, init encntr Plan of Treatment Future Appointment(s):05/17/2019 3:30 pm - Dru Stallings MD at [facility]03/07/2019 1:00 pm - Charli Molina NP at [place] [facility]02/14/2019 - Dru Stallings MDS46.011A Strain of muscle(s) and tendon(s) of the rotator cuff of rigFollow up:Follow up: 3 [id number] Unspecified sprain of left hip, subsequent encounter
--- NOTE | 2019-02-27 08:43 | ED ---
Upper Extremity Pain - HPI Summary HPI Summary: Patient is a 28-year-old female presents to the ED with left shoulder pain. She states she dislocated the shoulder approximate 4 months ago, reinjured it approximately 1 month after that and is pending PT since that time. She has been seen in the ED 3 times for shoulder pain. She endorses pain over the rotator cuff and tenderness to the scapula. She states she was at PT when she was doing an exercise which had her reach upward. She developed immediately pain to the rotator cuff and scapular at that time. She's been able to abduct, adduct, however his most comfortable and internal rotation and rest. Symptoms are worse with movement and better with rest. She denies any numbness or tingling. She states there is a "discoloration" to the left hand, however states that the arm has remained dependent due to pain and she has not been moving it for the past day. - History of Current Complaint Chief Complaint: EDShoulderClavicleInj Stated Complaint: LEFT SHOULDER PAIN PER PT Time Seen by Provider: 02/25/19 13:10 Hx Obtained From: Patient Onset/Duration: Started Hours Ago Timing: Constant Severity Initially: Moderate Severity Currently: Moderate Pain Location: Shoulder Character: Aching Aggravating Factor(s): Movement, Lifting, Flexion, Extension, Internal/External Rotation Alleviating Factor(s): Rest, Ice Associated Signs & Symptoms: Negative: Swelling, Redness, Bruising, Weakness, Numbness/Tingling, Chest Pain Related History: Dominant Hand Right - Risk Factors Non-Orthopedic Risk Factor: Negative DVT Risk Factors: Negative Septic Arthritis Risk Factor: Negative Compartment Syndrome Risk Factors: Pain - Allergies/Home Medications Allergies/Adverse Reactions: Allergies Allergy/AdvReac Type Severity Reaction Status Date / Time Benzodiazepines Allergy Altered Verified 02/25/19 13:07 Mental Status casein Allergy Abdominal Verified 02/25/19 13:06 Pain gluten Allergy Stomach Verified 02/25/19 13:06 Cramps morphine Allergy Vomiting Verified 02/25/19 13:06 Penicillins Allergy Vomiting Verified 02/25/19 13:06 biaxin Allergy Vomiting Uncoded 11/07/18 19:38 Home Medications: Home Medications Ketorolac TAB * [Toradol TAB *] 10 mg PO Q6H PRN 02/25/19 [History Confirmed ] Multivitamin [Multivitamins] 1 cap PO DAILY 02/25/19 [History Confirmed 02/25/19 ] PMH/Surg Hx/FS Hx/Imm Hx Previously Healthy: Yes Endocrine/Hematology History: Denies: Hx Diabetes Cardiovascular History: Denies: Hx Cardiac Arrest, Hx Hypertension, Hx Pacemaker/ICD History: Denies: Hx Dialysis, Hx Renal Disease Musculoskeletal History: Denies: Hx Osteoporosis Sensory History: Denies: Hx Eye Prosthesis, Hx Legally Blind, Hx Deafness, Hx Hearing Aid Opthamlomology History: Denies: Hx Eye Prosthesis, Hx Legally Blind Neurological History: Denies: Hx Developmental Delay Psychiatric History: Denies: Hx Panic Disorder - Surgical History Surgery Procedure, Year, and Place: TONSILS/ADENOIDS CHILD - Immunization History Hx Pertussis Vaccination: No Immunizations Up to Date: Yes Infectious Disease History: No Infectious Disease History: Denies: Traveled Outside the [place] in Last 30 Days - Family History Known Family History: Negative: Hypertension, Diabetes - Social History Occupation: Employed Full-time Lives: With Family Alcohol Use: None Hx Substance Use: No Substance Use Type: Reports: None Hx Tobacco Use: No Smoking Status (MU): Never Smoked Tobacco Review of Systems Constitutional: Negative Negative: Fever, Chills, Fatigue, Skin Diaphoresis Negative: Epistaxis, Dental Pain Negative: Palpitations, Chest Pain Negative: Abdominal Pain, Vomiting, Diarrhea Genitourinary: Negative Positive: Arthralgia - left shoulder Skin: Negative All Other Systems Reviewed And Are Negative: Yes Physical Exam Triage Information Reviewed: Yes Vital Signs On Initial Exam: Initial Vitals Temp Pulse Resp BP Pulse Ox 97.6 F 95 16 142/90 97 02/25/19 13:03 02/25/19 13:03 02/25/19 13:03 02/25/19 13:03 02/25/19 13:03 Vital Signs Reviewed: Yes Appearance: Positive: Well-Appearing, Well-Nourished Skin: Positive: Skin Color Reflects Adequate Perfusion Head/Face: Positive: Normal Head/Face Inspection Eyes: Positive: EOMI, Conjunctiva Clear Neck: Positive: Supple, No Lymphadenopathy Respiratory/Lung Sounds: Positive: Clear to Auscultation, Breath Sounds Present Cardiovascular: Positive: RRR, Pulses are Symmetrical in both Upper and Lower Extremities Musculoskeletal: Positive: Pain @ - left shoulder pain Neurological: Positive: Speech Normal Psychiatric: Positive: Affect/Mood Appropriate AVPU Assessment: Alert Diagnostics - Vital Signs Vital Signs Temp Pulse Resp BP Pulse Ox 02/25/19 13:03 97.6 F 95 16 142/90 97 - Laboratory Lab Statement: Any lab studies that have been ordered have been reviewed, and results considered in the medical decision making process. Course/Dx - Course Course Of Treatment: Patient is evaluated for left shoulder pain and possible injury which occurred at PT a few days ago. X-ray obtained which shows normal alignment and no acute findings. On physical examination, there is abduction, abduction, external and internal rotation intact, however with mild amount of pain. Good pulses +2 intact bilaterally. No numbness or tingling. There is no discoloration noted to the hand. Patient will follow-up with PT and orthopedics as scheduled. - Diagnoses Differential Diagnosis/HQI/PQRI: Positive: Strain, Sprain Provider Diagnoses: Left shoulder pain Discharge - Sign-Out/Discharge Documenting (check all that apply): Patient Departure Patient Received Moderate/Deep Sedation with Procedure: No - Discharge Plan Condition: Stable Disposition: HOME Patient Education Materials: Shoulder Pain (ED) Referrals: Arabella Hu MD [Primary Care Provider] - Additional Instructions: Ibuprofen 600mg three times daily as needed for pain Moist heat to the area - Billing Disposition and Condition Condition: STABLE Disposition: Home
== END | disposition home or self-care (01) ==
LOC: ED 12:55
DX: M25.512 Pain in left shoulder (principal); Z88.8 Allergy status to other drugs, medicaments and biological substances; Z88.0 Allergy status to penicillin; Z88.5 Allergy status to narcotic agent; Z88.3 Allergy status to other anti-infective agents
CPT/HCPCS: 99282